=== PATIENT | female | born 1970 | race Caucasian/White ===

== ENCOUNTER 2021-03-25 15:48 | Emergency (ER) | payer OTHER ==
[~2021-03-25] VITALS: Ht 160 cm; Wt 91.0 kg
[2021-03-25 16:42] LABS: BILIRUBIN,URINE NEGATIVE (NEGATIVE); CLARITY,URINE CLEAR; COLOR,URINE YELLOW; GLUCOSE, URINE (UA) NEGATIVE (NEGATIVE); KETONES,URINE NEGATIVE (NEGATIVE); LEUKOCYTE ESTERASE ,URINE NEGATIVE (NEGATIVE); NITRITE,URINE NEGATIVE (NEGATIVE); PROTEIN,URINE NEGATIVE (NEGATIVE)
[2021-03-25 16:50] LABS: BACTERIA,URINE TRACE /HPF; WBC,URINE RARE /HPF
[2021-03-25] MEDS ORDERED: NS 100 ML (IVPB) BAG IV ONE (17:00)
[2021-03-25] MEDS ORDERED: IOHEXOL 350 MG/ML 100 ML (OMNIPAQUE 350) VIAL IV ONE (17:00)
[2021-03-25] MEDS ORDERED: HOLD METFORMIN - RECEIVED CONTRAST 20 ML VIAL IV SCH (17:00)
--- NOTE | 2021-03-25 17:48 | ED GI ---
General Chief Complaint: Abdominal/GI Problems Stated Complaint: STOMACH PAIN Nursing Triage Note: PT AMB TO ROOM 6 PT CO OF ABD PAIN, STATES SHE HAD WENT DOWN WATER SLIDE LAST WEEK AND HAS BEEN SORE ALL WEEK BUT NOTICE BULDGE ON L LOWER ABD TODAY AND SEEMS TO BE GETTING LARGER. PT STATE SHE HAS A BLEEDING DISORDER LOW ANTITHROMBIN 3. PT STATES DISCOMFORT MAKES HER FEEL LIKE SHE HAS TO VOID (VENICE LOPES) History of Present Illness Date Seen by Provider: Mar 25, 2021 Time Seen by Provider: 15:55 Initial Comments 51 year old female with mass in left lower/suprapubic region, she noticed it wh ile driving 2 hours today. She had some muscle pains after riding water [employer] last week, only associated injury that could have been the cause. No history of hernias. She had previous hysterectomy, ovaries are intact. She denies abdominal pain except for when palpating over the mass. She denies nausea or vomiting, painful urination or other related symptoms. She takes Xarelto for a clotting disorder. Timing/Duration: 4-6 Hours, 1 Week Severity/Quality: Mild Location: LLQ Radiation: No Radiation Associated Symptoms: No Nausea/Vomiting; Swelling/Mass in Abdomen (VENICE LOPES) Allergies and Home Medications Allergies Coded Allergies: No Known Drug Allergies (Unverified , 03/25/21) Patient Home Medication List Home Medication List Reviewed: Yes (VENICE LOPES) Review of Systems Review of Systems Constitutional: no symptoms reported, see HPI Gastrointestinal: See HPI, Abdomen Distended, Abdominal Pain (VENICE LOPES) All Other Systems Reviewed Negative Unless Noted: Yes (VENICE LOPES) Past Ayypidf-Puxsvc-Ilrkfl Hx Patient Social History Tobacco Use?: No Substance use?: No Alcohol Use?: Yes Alcohol Frequency: Several times a month Pt feels they are or have been: No (VENICE LOPES) Immunizations Up To Date COVID19 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 oz. kg; 35.00 BMI Method: General Appearance: WD/WN Respiratory: chest non-tender, lungs clear Cardiovascular: normal peripheral pulses, regular rate, rhythm Gastrointestinal: normal bowel sounds, soft; No distended, No guarding, No rebound; tenderness, mass (LLQ, suprpubic, the mass is not pulsatile and there is no ecchymosis to her skin overlying it) Extremities: normal range of motion, non-tender, normal inspection, normal capillary refill Neurologic/Psychiatric: no motor/sensory deficits, alert, normal mood/affect, oriented x 3 Skin: normal color, warm/dry (VENICE LOPES) Progress/Results/Core Measures Results/Orders Lab Results Laboratory Tests Test 03/25/21 16:02 Range/Units Urine Color YELLOW Urine Clarity CLEAR Urine pH 7.0 5-9 Urine Specific [place] 1.010 L 1.016-1.022 Urine Protein NEGATIVE NEGATIVE Urine Glucose (UA) NEGATIVE NEGATIVE Urine Ketones NEGATIVE NEGATIVE Urine Nitrite NEGATIVE NEGATIVE Urine Bilirubin NEGATIVE NEGATIVE Urine Urobilinogen 0.2 < = 1.0 MG/DL Urine Leukocyte Esterase NEGATIVE NEGATIVE Urine RBC (Auto) NEGATIVE NEGATIVE Urine RBC NONE /HPF Urine WBC RARE /HPF Urine Squamous Epithelial Cells 2-5 /HPF Urine Crystals NONE /LPF Urine Bacteria TRACE /HPF Urine Casts NONE /LPF Urine Mucus NEGATIVE /LPF Urine Culture Indicated NO (SENG MARTINEZ MD) Medications Given in ED Current Medications Medications Dose Ordered Sig/Adenike Route Start Time Stop Time Status Last Admin Dose Admin Iohexol 100 ml ONCE ONCE IV 03/25/21 17:00 03/25/21 17:01 DC 03/25/21 17:21 100 ML Sodium Chloride 100 ml ONCE ONCE IV 03/25/21 17:00 03/25/21 17:01 DC 03/25/21 17:21 80 ML (SENG MARTINEZ MD) Vital Signs/I&O 03/25/21 03/25/21 15:54 18:59 Temp 37.2 Pulse 102 88 Resp 18 18 B/P (MAP) 163/103 (123) 142/80 (123) Pulse Ox 97 97 O2 Delivery Room Air (SENG MARTINEZ MD) Blood Pressure Mean: 123 Progress Progress Note : Time: 15:55 Progress Note Patient seen and evaluated will obtain UA and CT of the abdomen and pelvis. 175 CT results reviewed with the patient. We will continue to monitor the hematoma conservatively. Recommended she apply ice and a compressive band such as a back brace or girdle. Reevaluated the mass, continues to be nonpulsatile with no ecchymosis to the skin. Discharge instructions and return precautions reviewed with the patient. She question about stopping her Xarelto but discussed the risk of a clot is higher than the risk of bleeding from the hematoma. She will monitor her skin color and size of the mass, if there is any growth or increase in pain she will follow-up with her primary care provider. (VENICE LOPES) Diagnostic Imaging Diagonstic Imaging: CT Plain Films/CT/US/NM/MRI: abdomen, pelvis Comments NAME: [facility] REC#: [id number] PT STATUS: REG ER : 1970 PHYSICIAN: VENICE LOPES ADMIT DATE: 03/25/21/ER Draft Date of Exam:03/25/21 CT ABDOMEN/PELVIS W PROCEDURE: CT abdomen and pelvis with contrast. TECHNIQUE: Multiple contiguous axial images were obtained through the abdomen and pelvis after administration of intravenous contrast. Auto Exposure Controls were utilized during the CT exam to meet ALARA standards for radiation dose reduction. All CT scans use one or more of the following dose optimizing techniques: automated exposure control, MA and/or KvP adjustment based on patient size and exam type or iterative reconstruction. DATE: March 25, 2021. COMPARISON: None. INDICATION: 51-year-old female, mass in the left lower quadrant. FINDINGS: The visualized portions of the lung bases are clear. The heart is not enlarged. There is no pericardial effusion. There is diffuse fatty infiltration of the liver. The outer liver contours are not nodular. There is no identified focal liver lesion. The main, right, and left portal veins are patent. There is question of layering gallstones. There is no evidence of acute cholecystitis. There is no intrahepatic or extrahepatic bile duct dilation. The main pancreatic duct is not abnormally dilated. Unremarkable appearance of the pancreatic parenchyma. There are accessory splenules. The spleen is normal in size. The adrenal glands are unremarkable. Unremarkable appearance of the renal parenchyma. The urinary collecting systems are not distended. There is no identified renal or ureteral stone. There are pelvic calcifications consistent with phleboliths. The urinary bladder is unremarkable in appearance. The uterus is not seen and likely is surgically absent. The intestinal tract is not distended. The appendix is not well seen. There are no secondary findings to suggest acute appendicitis. There is no free intraperitoneal air. There is no large volume free pelvic fluid. There is an inferior vena cava filter. There are atherosclerotic calcifications noted. There is no identified abnormally enlarged lymph node in the abdomen or pelvis meeting CT size criteria for adenopathy. There is a heterogeneous attenuation mass with fluid fluid level in the left rectus abdominis muscle with adjacent inflammatory stranding measuring 7.4 x 3.8 cm in axial extent with a craniocaudal extent of approximately 8 cm. This most likely reflects a hematoma. There is a small caliber vessel traveling through the hematoma. There is a contrast attenuation focus within the hematoma on axial image 65 and adjacent sequential images which may potentially reflect active extravasation of contrast. There are multilevel degenerative changes of the spine. There is no identified acute bony abnormality. IMPRESSION: CT ABDOMEN AND PELVIS. (VENICE LOPES) Departure Impression Primary Impression: Hematoma of abdominal wall Qualified Codes: S30.1XXA - Contusion of abdominal wall, initial encounter Disposition: 01 HOME, SELF-CARE Condition: Improved Departure-Patient Inst. Decision time for Depature: 17:45 (VENICE LOPES) Patient Instructions: HEMATOMA Add. Discharge Instructions: apply ice pack to lower abdominal hematoma 20 min every 2 hours. Wear a compressive girdle or back brace. Activities, as tolerated. Avoid heavy lifting. Continue your home medications. Follow-up with your primary care provider or emergency dept if symptoms are not improving or worsen; increase in size of mass, pulsating, bruising to skin, abdominal pain. All discharge instructions reviewed with patient and/or family. Voiced un derstanding. ATTENDING PHYSICIAN NOTE: I was physically present as attending physician in the emergency department during the care of this patient, but I was not directly involved in the decision making or delivery of care for this patient. (BRUEGGEMANN,VENICE CRUZ Mar 25, 2021 17:48 SENG MARTINEZ MD Mar 25, 2021 21:12
--- NOTE | 2021-03-25 17:55 | Diagnostic Imaging Report ---
PROCEDURE: CT abdomen and pelvis with contrast. TECHNIQUE: Multiple contiguous axial images were obtained through the abdomen and pelvis after administration of intravenous contrast. Auto Exposure Controls were utilized during the CT exam to meet ALARA standards for radiation dose reduction. All CT scans use one or more of the following dose optimizing techniques: automated exposure control, MA and/or KvP adjustment based on patient size and exam type or iterative reconstruction. DATE: March 25, 2021. COMPARISON: None. INDICATION: 51-year-old female, mass in the left lower quadrant. FINDINGS: The visualized portions of the lung bases are clear. The heart is not enlarged. There is no pericardial effusion. There is diffuse fatty infiltration of the liver. The outer liver contours are not nodular. There is no identified focal liver lesion. The main, right, and left portal veins are patent. There is question of layering gallstones. There is no evidence of acute cholecystitis. There is no intrahepatic or extrahepatic bile duct dilation. The main pancreatic duct is not abnormally dilated. Unremarkable appearance of the pancreatic parenchyma. There are accessory splenules. The spleen is normal in size. The adrenal glands are unremarkable. Unremarkable appearance of the renal parenchyma. The urinary collecting systems are not distended. There is no identified renal or ureteral stone. There are pelvic calcifications consistent with phleboliths. The urinary bladder is unremarkable in appearance. The uterus is not seen and likely is surgically absent. The intestinal tract is not distended. The appendix is not well seen. There are no secondary findings to suggest acute appendicitis. There is no free intraperitoneal air. There is no large volume free pelvic fluid. There is an inferior vena cava filter. There are atherosclerotic calcifications noted. There is no identified abnormally enlarged lymph node in the abdomen or pelvis meeting CT size criteria for adenopathy. There is a heterogeneous attenuation mass with fluid fluid level in the left rectus abdominis muscle with adjacent inflammatory stranding measuring 7.4 x 3.8 cm in axial extent with a craniocaudal extent of approximately 8 cm. This most likely reflects a hematoma. There is a small caliber vessel traveling through the hematoma. There is a contrast attenuation focus within the hematoma on axial image 65 and adjacent sequential images which may potentially reflect active extravasation of contrast. There are multilevel degenerative changes of the spine. There is no identified acute bony abnormality. IMPRESSION: CT ABDOMEN AND PELVIS. 1. Left rectus abdominis muscle hematoma measuring 7.4 x 3.8 x 8 cm in size with potential small focus of active extravasation of contrast within the hematoma. 2. Diffuse fatty infiltration of the liver. Dictated by: Dictated on workstation # [id number]
[2021-03-25 18:59] VITALS: BP 142/80
== END 2021-03-25 18:59 | disposition home or self-care (01) ==
LOC: ER 15:53
DX: S30.1XXA Contusion of abdominal wall, initial encounter (principal); Z79.01 Long term (current) use of anticoagulants; Y93.19 Activity, other involving water and watercraft
CPT/HCPCS: 74177; 81000